=== PATIENT | female | born 1950 | race Caucasian/White ===

== ENCOUNTER 2025-08-04 18:19 | Inpatient (IN) | payer MEDICARE, OTHER, SELFPAY ==
[2025-08-04 16:30] VITALS: BP 145/75; PULSE 60; RESP 16; O2SAT 97; BMI 32.9
[2025-08-04 19:00] VITALS: BP 186/77; PULSE 61; RESP 16; TEMP 36.9; O2SAT 97
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
[2025-08-04 20:23] VITALS: RESP 16
[2025-08-04 20:50] VITALS: BP 171/67
[2025-08-04 22:47] VITALS: PULSE 56
[2025-08-04 22:53] VITALS: BP 173/68; PULSE 62; RESP 18; TEMP 37.1; O2SAT 97
[2025-08-05] VITALS (23 sets, daily range): BP systolic 136–197; BP diastolic 60–126; PULSE 61–74; RESP 14–18; TEMP 36.1–37.1; O2SAT 92–98
[2025-08-05] MEDS: ACETAMINOPHEN 325 MG TABLET 650 MG PO ×2 (01:02→19:34)
[2025-08-05 06:44] LABS: Hematocrit* 34.6 % (33.0-51.0); Hemoglobin* 11.6 gm/dL (12.0-16.0); Mean Corpuscular HGB Conc 34 gm/dL (32-36); Mean Corpuscular Hemoglobin 32 pg (26-34); Mean Corpuscular Volume 96 fL (80-100); Red Blood Count* 3.61 m/uL (4.00-5.20); White Blood Count* 7.46 K/uL (4.50-11.00)
--- NOTE | 2025-08-05 06:54 | PC.NURSE ---
End of shift report [id number]: VSS. Afebrile.?Pt has been NPO since 2199. Denies nausea. Pt was?on?bedrest overnight, repositioning as tolerated. Active ice applied.?Pure wick?is intact.?Pt has earrings, dentures, R hearing?aid?and glasses that?pt will?remove prior to surgery and put in the labeled container in room. Pt denies pain at rest, prn?tylenol?offered and?given for?comfort.?Bed alarm on, call light within reach.?
[2025-08-05 06:56] LABS: Chloride* 102 mmol/L (96-114); Potassium* 3.4 mmol/L (3.6-5.1); Sodium* 136 mmol/L (135-149)
[2025-08-05 06:59] LABS: Anion Gap 6 mEq/L (7-15); Blood Urea Nitrogen* 11 mg/dL (7-30); Calcium* 8.7 mg/dL (8.4-10.6); Carbon Dioxide* 28 mmol/L (20-32); Creatinine* 0.5 mg/dL (0.5-1.5); Est. Creatinine Clearance* 38.44; Estimated Glomerular Filt Rate 98 ml/min; Glucose* 118 mg/dL (60-115)
[2025-08-05 07:02] LABS: Slide Review Reflex No
[2025-08-05 07:24] LABS: NT Pro B Type NatriureticPept* 533 pg/mL (See Note)
--- NOTE | 2025-08-05 07:30 | CRLHL7_ITS ---
For Patients: As a result of the Century Cures Act, medical imaging exams and procedure reports are released immediately into your electronic medical record. You may view this report before your referring provider. If you have questions, please contact your health care provider. INDICATION: Intraop. TECHNIQUE: Three spot fluoroscopic views of the left hip. COMPARISON: None. FINDINGS: Left hip intramedullary nail appears properly positioned. Please see operative report/procedure note for complete details. Fluoroscopy time: 83 seconds. Radiation dose: 13.5 mGy. IMPRESSION: Fluoroscopic guidance for left hip fixation. Dictated by Hans Alexandre MD @ 08/06/2025 8:06:14 AM (Electronically Signed)
--- NOTE | 2025-08-05 07:47 | P.IMPN_ITS ---
Assessment and Plan Assessment and plan (1) Intertrochanteric fracture of left femur: Problem comment: - fall on 08/04/2025 with resultant mildly impacted intertrochanteric fracture of left proximal femur - Dr. Trujillo, orthopedic surgeon, will consult with patient on the morning of 08/05/2025 to consider possible surgical management options with patient - NPO after 10:00 p.m. on 08/04/2025. Pain management. - 08/05 Preop clearance: New RUSB murmur. I am concerned about the possibility of severe or critical aortic stenosis. The patient has not had chest pain, shortness of breath, or syncope, but does endorse recent lightheadedness to her nurse. I spoke with Dr. Saba from [facility] who noted this patient had an ECHO 6 years ago that is in their system that showed aortic sclerosis with mild stenosis at that time. She agreed that with the new right upper sternal border murmur heard on exam and this history, that there is a possibility this patient could have more severe stenosis by now. He noted that having a loud murmur is usually associated with a less severe stenosis, but severe critical aortic stenosis cannot be ruled out without on echo. We discussed whether not echo would be necessary prior to going to an urgent surgery for hip fracture. We discussed that there is a risk of increased mortality in delaying surgery for hip fracture, but that there is also a increased risk of morbidity or mortality with more severe stenosis and that we should avoid hypotension until we know. Dr. Saba stated that it is up to the comfort level of our providers here as to whether or not she goes to surgery prior to getting an ECHO, and that if we take her to surgery without those results, we should avoid hypotension (she stressed this several times). I spoke with Dr. Cresencio Watts and our nurse bleaching machine operator, Yanet Estrada, and we decided to delay surgery until an echo could be obtained, which should be today yet. They noted that they could do the surgery yet today in the afternoon or evening, if she is medically cleared for surgery by then. Status: Acute (2) Newly recognized heart murmur: Problem comment: - as above, ECHO pending, to be done today Status: Acute (3) Hypertension: Problem comment: - when initially seen in the emergency department at [address], systolic blood pressure was 220 with diastolic pressure 110. Since then her blood pressures have improved substantially. Continue to monitor. Given patient's stated adverse reaction to multiple antihypertensives including atenolol, carvedilol, chlorthalidone, lisinopril, losartan, amlodipine, may need to consider clonidine or hydralazine with a diuretic in low-dose short-acting beta-teresa such as metoprolol tartrate if warranted. - Avoid hypotension (as above) until more information is available from ECHO. Status: Acute (4) Hypothyroid: Problem comment: - historically patient has been on levothyroxine 100 mcg daily. She stopped taking her levothyroxine over 2 years ago. Presently her TSH is 45.9. - will restart her levothyroxine at 100 mcg daily presently. This may help lower her blood pressures as well. Status: Acute (5) Tricompartment osteoarthritis of knees, bilateral: Problem comment: End-stage Status: Chronic (6) Controlled type 2 diabetes mellitus without complication, without long-term current use of insulin: Problem comment: - in-hospital will use sliding scale insulin q.i.d. a.c. and at bedtime Status: Chronic (7) Sensorineural hearing loss, bilateral: Status: Chronic (8) Noncompliance with medication regimen: Status: Acute (9) Porcelain gallbladder: Problem comment: - incidentally found on 08/04/2025 when she was assessed and found to have the left intratrochanteric fracture. Radiologist recommends dedicated CT scan to further assess this in the outpatient setting and consider follow-up with general surgeon. Status: Acute Plan 1. Reviewed impression, plans, recommendations with patient and 2. They are agreeable with above stated plans and recommendations 3. Answered their questions to their satisfaction Total Time Spent Total Time Spent: Today I spent 60 minutes seeing the patient, discussing with the patient and her , phone discussion with Cardiology, discussion with orthopedic provider and nurse bleaching machine operator, reviewing Expanse and EPIC notes/diagnostics/labs, discussing the care plan with our care team that includes social work, PT/OT, pharmacy, RT, correction and documenting my impressions and plan in the medical record. Subjective Time Seen by Provider: 07:15 Date Seen: 08/05/25 Interval history: Vaishali's , Ricky, is also in the room this morning. Vaishali has minimal pain. She denies CP or SOB. She told the nurse that she hasn't felt well for about a week and sometimes gets lightheaded, but she denied lightheadedness when I asked her about that. She also denies syncope. She tells me that she fell because her sciatica was acting up and her knee gave out. Exam Narrative: Exam Narrative: General: No acute distress. Awake, alert, oriented x3. No pallor. No jaundice. Oropharynx: Clear. Mucous membranes moist. Cardiovascular: Regular rate and rhythm. Harsh grade 4/6 murmur loudest at the right upper sternal border that radiates to both carotids, right greater than left. Respiratory: Clear to auscultation bilaterally. No wheezes or crackles. Abdomen: Bowel sounds present. Soft, nondistended, nontender. Extremities: Left lower extremity is shortened and externally rotated. No ecchymosis over left hip noted. No lower extremity edema. Const: Vital Signs, click to edit/add: Vital Signs - 24 hr 08/04/25 16:30 08/04/25 16:30 08/04/25 19:00 Temperature 98.5 F Pulse Rate Pulse Rate [Pulse Oximeter] 60 61 Respiratory Rate 16 16 Blood Pressure [Le ft Arm] 145/75 H 186/77 H Blood Pressure [Le ft forearm] Pulse Oximetry 97 97 97 Oxygen Delivery Me thod Room Air Room Air Room Air 08/04/25 20:23 08/04/25 20:50 08/04/25 22:47 Temperature Pulse Rate 56 L Pulse Rate [Pulse Oximeter] Respiratory Rate 16 Blood Pressure [Le ft Arm] Blood Pressure [Le ft forearm] 171/67 H Pulse Oximetry Oxygen Delivery Me thod 08/04/25 22:53 08/04/25 22:53 08/05/25 03:00 Temperature 98.7 F 98.4 F Pulse Rate Pulse Rate [Pulse Oximeter] 62 68 Respiratory Rate 18 18 18 Blood Pressure [Le ft Arm] Blood Pressure [Le ft forearm] 173/68 H 177/78 H Pulse Oximetry 97 97 95 Oxygen Delivery Me thod Room Air Room Air Room Air Labs Labs: Laboratory Results - last 24 hr 08/05/25 05:50 WBC 7.46 RBC 3.61 L Hgb 11.6 L Hct 34.6 MCV 96 MCH 32 MCHC 34 Plt Count 227 Sodium 136 Potassium 3.4 L Chloride 102 Carbon Dioxide 28 Anion Gap 6 L BUN 11 Creatinine 0.5 Estimated Creat Clear 38.44 Estimated GFR 98 Glucose 118 H Calcium 8.7 Magnesium 1.9 C-Reactive Protein 2.5 H NT-Pro-B Natriuret Pep 533 H
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
--- NOTE | 2025-08-05 08:54 | REH.PT ---
PT and OT eval orders were recieved, chart reviewed, and patient discussed in rounds. Patient with L hip fracture and awaiting surgery, will hold PT and OT eval orders until after surgery and cleared by team.
--- NOTE | 2025-08-05 10:47 | P.ORPRC_ITS ---
Procedure Note Date of procedure: 08/05/25 Procedure: PREOPERATIVE DIAGNOSIS: 1. Left intertrochanteric hip fracture, closed, displaced POSTOPERATIVE DIAGNOSES: 1. Left intertrochanteric hip fracture, closed PROCEDURE: 1. Left intertrochanteric hip fracture fixation with cephalomedullary hip screw 2. 18294 - Intraoperative fluoroscopy up to 1 hour SURGEON: Cresencio Trujillo MD STRUCTURAL BIOLOGIST: Daisy Merchant P.A.-C. An administrative library assistant was critical for this case to aid in patient positioning, leg manipulation, tissue retraction, instrument positioning, and wound closure. ANESTHESIA: General IMPLANTS: Synthes short TFNA nail: 11 mm X 170 mm x 130 degrees. One hundred mm lag screw. Single 5.0 mm distal interlocking screw EBL: 200 ml COMPLICATIONS: None evident INDICATIONS: Vaishali is a 74-year-old female who sustained a ground level fall yesterday, which resulted in development of left hip pain and inability to bear weight. Patient was subsequently seen in an outside emergency department where x-rays revealed displaced left intertrochanteric hip fracture. She was then transferred to the [facility] for further treatment. Surgical stabilization of this fracture was recommended to allow for early mobilization and advancement of weight-bearing, decreased pain, and healing of the fracture. Prior to procedure, risks and benefits of the operative and non operative treatment were discussed with the patient. After discussion of risks, benefits, and alternatives of surgery, informed consent was obtained and the operative hip was marked. FINDINGS: Displaced, intertrochanteric left hip fracture PROCEDURE: After obtaining proper medical evaluation determining the patient was medically optimized for surgery, she was brought to the operating room and placed supine on the operating table. Induction of general anesthesia undertaken. IV Ancef was administered within 1 hr incision preoperatively. The patient was then positioned on the [place] table, and all bony prominences were well padded. Closed reduction was performed by applying traction to the of leg. Fluoroscopic imaging was utilized to obtain AP and lateral views of the hip and to confirm anatomic reduction of the fracture. The operative extremity was then prepped and draped in usual sterile fashion using ChloraPrep. A surgical time- out was performed confirming patient identity surgical site and surgical procedure. A longitudinal incision was made in line with the femur proximal to the greater trochanter. Incision was carried through subcutaneous tissues. Gluteal fascia was split in line with surgical incision. The tip of the greater trochanter was palpated and the guide pin was then placed into the medial tip of the greater trochanter and advanced into the proximal femur. Correct position of the guide pin was confirmed with fluoroscopy in both the AP and lateral planes. This was then overdrilled with the starting Reamer. The guide pin was then removed. A short TFNA nail was then placed into the intramedullary canal of the femur and seated to the correct depth using fluoroscopic guidance. The triple trocar was then applied to the lateral femur, 10 blade incision through the skin and ITB band along the trocars to be opposed against the lateral cortex. This was confirmed fluoroscopically to be in appropriate position. The 3.2 mm guide pin was then placed and confirmed on AP and lateral views with the goal of center-center position in the subchondral bone of the femoral head. The guide pin measured for a 100 mm lag screw. Guide pin was then overdrilled and a 100 mm lag screw was secured into position. The proximal nail locking screw was tightened down, a then backed off a 1/2 turn. We then turned our attention to placement of the the distal interlock screw. The guide for the distal interlock screw was placed on the lateral cortex of the femur. The distal interlock hole was drilled with the 4.2 mm drill bit and filled with a distal interlock screw, which measured 38 mm. Final fluoroscopic images of the proximal femur were obtained in AP and lateral planes confirming near anatomic reduction of the fracture and satisfactory placement of the nail and screws. At this stage, the wounds were thoroughly irrigated with normal saline. Subcutaneous tissues were injected with 0.5% bupivacaine with epinephrine. Wound closure was performed with 0 Vicryl for the deep gluteal fascia, and IT band. 2-0 Vicryl and 4-0 Monocryl was utilized for subcutaneous and subcuticular closure, respectively. After wound closure, sterile dressing were applied. The patient was then awoken from anesthesia and transferred to the PACU in stable condition. POSTOPERATIVE PLAN: 1. Patient will be readmitted to the hospitalist service for perioperative medical management. 2. Mobilize with physical therapy and occupational therapy. - Weight bear as tolerated left lower extremity. 3. Pain control: - Acetaminophen and Oxycodone for pain as needed. -IV pain medications for breakthrough pain -Ice for pain and swelling 4. Postoperative prophylactic antibiotics x2 doses 5. DVT prophylaxis: - Xarelto 10 mg daily for 35 days - SCDs bilateral lower extremities. 6. Follow-up with P.A. in Orthopedic Clinic in 1-2 weeks for wound check. Follow-up with Dr. Trujillo in 6 weeks.
[2025-08-05] MEDS: TRANEXAMIC ACID 100 MG/ML INJ 1000 MG IV (11:08)
[2025-08-05] MEDS: BUPIVACAINE 0.5 %/EPI 1:200K 30 ML INJECTION (12:10)
--- NOTE | 2025-08-05 13:15 | P.ANES_ITS ---
Anesthesia Charges Start Date/Time Anesthesia Start Date: 08/05/25 Anesthesia Start Time: 10:41 Stop Date/Time Anesthesia Stop Date: 08/05/25 Anesthesia Stop Time: 12:31 Summary Emergency: MACHINE SHOP WORKER Extremes of Age - Over 70 or under 1: MACHINE SHOP WORKER Coding CPT Codes CPT Codes: ANESTH HIP JOINT SURGERY - 97410 ([id number]) P3 - PATIENT W/SEVERE SYS DISEASE, QZ - MACHINE SHOP WORKER SVC W/O SPORTING GOODS SALESPERSON BY Additional Codes: Summary - Emergency: MACHINE SHOP WORKER ([id number]) Summary - Extremes of Age - Over 70 or under 1: MACHINE SHOP WORKER ([id number])
--- NOTE | 2025-08-05 13:15 | W.ANESCHARGE ---
Anesthesia Charges Start Date/Time Anesthesia Start Date: 08/05/25 Anesthesia Start Time: 10:41 Stop Date/Time Anesthesia Stop Date: 08/05/25 Anesthesia Stop Time: 12:31 Summary Emergency: INTERNAL REVENUE AGENT Extremes of Age - Over 70 or under 1: INTERNAL REVENUE AGENT Coding CPT Codes CPT Codes: ANESTH HIP JOINT SURGERY - 00373 ([id number]) P3 - PATIENT W/SEVERE SYS DISEASE, QZ - INTERNAL REVENUE AGENT SVC W/O CARBON BRUSH MAKER BY Additional Codes: Summary - Emergency: INTERNAL REVENUE AGENT ([id number]) Summary - Extremes of Age - Over 70 or under 1: INTERNAL REVENUE AGENT ([id number])
[2025-08-05] MEDS: ONDANSETRON 2 MG/ML inj 4 MG IVP (13:45)
--- NOTE | 2025-08-05 17:55 | PC.NURSE ---
End of shift: patient is a/o x4, VSS on RA. Off unit at 1040 for surgery. up to floor at 1300 after Left hip fracture repair. Dressing C/D/I and active ice to op site. denies pain. C/o nausea and had 4 emesis after surgery, patient refused Zofran, queazy patch, soha-laurie or other therapeutic therapies. RN was able to educate patient on using Zofran once for the nausea and vomiting after the fourth emesis. PRN Zofran administered w/relief. Patient is hesitant to use pain meds or any other medications. patient educated on the importance of medication compliance. patients wishes have been upheld. Patient up to chair, voided and tolerating a reg diet. at bedside.
[2025-08-05] MEDS: CEFAZOLIN 2 GM in 0.9 % SODIUM CHLORIDE Mini-bag 100 ML IVPB (18:43)
--- NOTE | 2025-08-05 20:08 | PC.NURSE ---
Pt noted to have R AC infiltrating after 1900 dose of IV Cefazolin given. IV was removed with catheter tip intact. Active applied and RUE elevated. Pt refused to have new IV placed despite education of tele, full code status and IV antibiotics ordered after surgery. Chief Of Police updated Dr. Trejo and ortho CHERYL Villa regarding pt's refusal and unwilling to receive second and final dose of Cefazolin. No new orders.
[2025-08-06] VITALS (10 sets, daily range): BP systolic 123–167; BP diastolic 56–73; PULSE 55–70; RESP 16–20; TEMP 36.6–37.2; O2SAT 90–96
[2025-08-06] MEDS: ACETAMINOPHEN 325 MG TABLET 650 MG PO ×3 (03:35→21:09)
[2025-08-06 05:53] LABS: Hematocrit* 31.1 % (33.0-51.0); Hemoglobin* 10.6 gm/dL (12.0-16.0); Immature Granulocytes Abs Auto 0.01 K/uL (0.00-0.30); Immature Granulocytes Pct Auto 0.1 %; Mean Corpuscular HGB Conc 34 gm/dL (32-36); Mean Corpuscular Hemoglobin 32 pg (26-34); Mean Corpuscular Volume 95 fL (80-100); RDW Coefficient of Variation % 12.7 % (11.5-15.5); Red Blood Count* 3.27 m/uL (4.00-5.20); White Blood Count* 11.00 K/uL (4.50-11.00)
[2025-08-06 05:55] LABS: Lymphocytes Absolute Auto 2.10 K/uL (0.90-2.90)
[2025-08-06 05:56] LABS: Slide Review Reflex No
[2025-08-06 06:06] LABS: Chloride* 103 mmol/L (96-114); Potassium* 3.6 mmol/L (3.6-5.1); Sodium* 134 mmol/L (135-149)
[2025-08-06 06:09] LABS: Anion Gap 4 mEq/L (7-15); Blood Urea Nitrogen* 15 mg/dL (7-30); Calcium* 8.7 mg/dL (8.4-10.6); Carbon Dioxide* 27 mmol/L (20-32); Creatinine* 0.7 mg/dL (0.5-1.5); Est. Creatinine Clearance* 38.44; Estimated Glomerular Filt Rate 90 ml/min; Glucose* 122 mg/dL (60-115)
--- NOTE | 2025-08-06 06:25 | PC.NURSE ---
End of shift note [id number]: Pt A&Ox4 and able to make needs known. She is [place] at baseline and wears bilateral hearing aids. Pt transferring/ambulating to and from bathroom using assist of 2 for safety with FWW and gait belt. Pt continent and incontinent of bladder throughout the shift. IV to R AC noted to be infiltrated at start of shift. IV removed with catheter intact. Pt refused to have new IV placed despite education. MD Trejo and CHERYL Villa with Ortho department aware. Pt refuses medications for pain other than Tylenol. She has been denying nausea throughout the shift and has had no emesis noted. CMS to LLE WNL. Dressings to lateral LLE C/D/I. Active ice utilized for pain control. Tele in place with NSR with inverted T wave noted which is not a new finding as this was noted on previous EKG and signed by . Call light within reach and pt up in chair for breakfast.
[2025-08-06] MEDS: RIVAROXABAN 10 MG TABLET PO (08:14)
--- NOTE | 2025-08-06 08:20 | PM.ORPN ---
Subjective Subjective Time Seen by Provider: 07:30 Date Seen: 08/06/25 Principal diagnosis: Status post left hip IM rodding Interval history: Vaishali is comfortable this morning. She has been ambulating with walker and assistance. She would like to go home upon discharge. She takes Tylenol for pain. Ortho Exam Narrative Exam Narrative: Alert and oriented x3. Patient is in no acute distress. Converses without labored breathing. Hard of hearing. Ambulates with a walker and assists. Examination of the left hip shows mild soft tissue edema. Dressings are intact. No erythema or warmth or sign of infection. CMS intact left lower extremity. Calves are soft and nontender. Const Vital Signs, click to edit/add: Vital Signs - 24 hr 08/05/25 12:28 08/05/25 12:35 08/05/25 12:40 Temperature 97.9 F Pulse Rate 73 65 63 Pulse Rate [Pulse Oximeter] Respiratory Rate 14 16 14 Blood Pressure 194/88 H 185/94 H 162/70 H Blood Pressure [Left forearm] Pulse Oximetry 98 97 95 Oxygen Delivery Method Nasal Cannula Oxygen Flow Rate 2 1 08/05/25 12:45 08/05/25 12:50 08/05/25 12:55 Temperature 98.2 F Pulse Rate 68 70 71 Pulse Rate [Pulse Oximeter] Respiratory Rate 17 16 16 Blood Pressure 181/78 H 178/86 H 178/77 H Blood Pressure [Left forearm] Pulse Oximetry 95 95 92 Oxygen Delivery Method Room Air Oxygen Flow Rate 08/05/25 13:00 08/05/25 13:15 08/05/25 13:30 Temperature 97.0 F L 98.0 F 97.9 F Pulse Rate Pulse Rate [Pulse Oximeter] 66 74 74 Respiratory Rate 18 18 18 Blood Pressure Blood Pressure [Left forearm] 171/126 H 197/86 H 193/77 H Pulse Oximetry 95 95 95 Oxygen Delivery Method Room Air Room Air Room Air Oxygen Flow Rate 1 08/05/25 13:45 08/05/25 14:00 08/05/25 14:30 Temperature 97.9 F 97.9 F 97.9 F Pulse Rate Pulse Rate [Pulse Oximeter] 66 66 63 Respiratory Rate 18 18 18 Blood Pressure Blood Pressure [Left forearm] 195/85 H 179/89 H 169/67 H Pulse Oximetry 95 95 97 Oxygen Delivery Method Room Air Room Air Room Air Oxygen Flow Rate 08/05/25 15:00 08/05/25 15:00 08/05/25 15:00 Temperature 97.7 F Pulse Rate Pulse Rate [Pulse Oximeter] 65 65 Respiratory Rate 18 18 18 Blood Pressure Blood Pressure [Left forearm] 164/96 H Pulse Oximetry 93 93 Oxygen Delivery Method Room Air Room Air Oxygen Flow Rate 08/05/25 15:00 08/05/25 16:00 08/05/25 17:00 Temperature 98.0 F 98.0 F Pulse Rate 71 Pulse Rate [Pulse Oximeter] 63 65 Respiratory Rate 16 16 Blood Pressure Blood Pressure [Left forearm] 155/77 H 156/80 H Pulse Oximetry 97 95 Oxygen Delivery Method Room Air Room Air Oxygen Flow Rate 08/05/25 18:00 08/05/25 19:00 08/05/25 22:00 Temperature 98.0 F 98.3 F Pulse Rate Pulse Rate [Pulse Oximeter] 69 69 69 Respiratory Rate 16 16 16 Blood Pressure Blood Pressure [Left forearm] 151/82 H 161/71 H Pulse Oximetry 96 95 Oxygen Delivery Method Room Air Room Air Oxygen Flow Rate 08/05/25 22:42 08/05/25 22:44 08/05/25 22:46 Temperature 98.7 F Pulse Rate 61 Pulse Rate [Pulse Oximeter] 61 Respiratory Rate 16 16 Blood Pressure Blood Pressure [Left forearm] 136/60 Pulse Oximetry 93 93 Oxygen Delivery Method Room Air Room Air Oxygen Flow Rate 08/06/25 03:30 Temperature 98.8 F Pulse Rate Pulse Rate [Pulse Oximeter] 64 Respiratory Rate 16 Blood Pressure Blood Pressure [Left forearm] 160/73 H Pulse Oximetry 96 Oxygen Delivery Method Room Air Oxygen Flow Rate Assessment and Plan Assessment and plan (1) Status post-operative repair of closed fracture of left hip: Problem details: Date of surgery 08/05/2025, Dr. Trujillo Status: Acute Assessment and Plan: Vaishali is quite comfortable on Tylenol only. She plans to go home upon discharge. [facility] to work with her today. Weightbear as tolerated left lower extremity. For DVT prophylaxis she will take Xarelto 10 mg for 35 days. Outpatient physical therapy will be needed. She will return to clinic in 1-2 weeks for a PA wound check, [address] Trujillo.
--- NOTE | 2025-08-06 14:13 | PC.SOCIAL ---
Discharge planning:Met with pt regarding discharge planning. Pt states she plans to return to her home at discharge in [facility] where she lives with her and son. Pt states she has no concerns about care at home and will have assistance from family as needed. Pt states all her family have large vehicles that she can not get in and out of and is requesting taxi be arranged for discharge tomorrow. Pt requested social service agency director arrange for a taxi to her home address on her facesheet and asked social service agency director to provide her with the cost. skid worker called [employer] and arranged for waste picker tomorrow at 11:30am at the main door of the hospital. Cost will be $40 [place]. i requested a confirmation call that pt will be ready at that time 15 minutes before waste picker time to [phone]. skid worker to provide this information to pt.
--- NOTE | 2025-08-06 18:14 | P.IMPN_ITS ---
Assessment and Plan Assessment and plan (1) Status post-operative repair of closed fracture of left hip: Problem comment: Date of surgery 08/05/2025, Dr. Trujillo Routine post op cares Patient will try low dose oxycodone today Status: Acute (2) Intertrochanteric fracture of left femur: Problem comment: - fall on 08/04/2025 with resultant mildly impacted intertrochanteric fracture of left proximal femur Status: Acute (3) Tricompartment osteoarthritis of knees, bilateral: Problem comment: End-stage Status: Chronic (4) History of DVT of lower extremity: Problem comment: Recommend low dose rivaroxaban for 4 weeks post op for VTE prophylaxis Status: Inactive (5) Aortic stenosis: Problem comment: - 08/05/25 Moderate to severe on ECHO - Unclear if patient has been symptomatic, although I think she has not been; she is poor historian, variable reporting of recent lightheadedness. Denies SOB, CP, syncope. F/u with cardiology as outpatient Status: Acute (6) LVH (left ventricular hypertrophy): Problem comment: - On ECHO 08/05/25 - Starting MARU inh Status: Acute (7) Hypertension: Problem comment: - when initially seen in the emergency department at [address], systolic blood pressure was 220 with diastolic pressure 110. Since then her blood pressures have improved substantially. Continue to monitor. Given patient's stated adverse reaction to multiple antihypertensives including atenolol, carvedilol, chlorthalidone, lisinopril, losartan, amlodipine, may need to consider clonidine or hydralazine with a diuretic in low-dose short-acting beta-teresa such as metoprolol tartrate if warranted. - Avoid hypotension (as above) - Start lisinopril (LVH), f/u with PCP in [place] Status: Acute (8) Hypothyroid: Problem comment: - historically patient has been on levothyroxine 100 mcg daily. She stopped taking her levothyroxine over 2 years ago. Presently her TSH is 45.9. - levothyroxine at 100 mcg daily. This may help lower her blood pressures as well. Patient agreeable to take this now. Status: Acute (9) Controlled type 2 diabetes mellitus without complication, without long-term current use of insulin: Problem comment: - in-hospital will use sliding scale insulin q.i.d. a.c. 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 Radiologist recommends dedicated CT scan to further assess this in the outpatient setting and consider follow-up with general surgeon. Status: Acute (12) Obesity (BMI 30.0-34.9): Status: Acute (13) Sensorineural hearing loss, bilateral: Status: Chronic Total Time Spent Total Time Spent: Today I spent 50 minutes seeing the patient, discussing with the patient, reviewing Expanse and EPIC notes/diagnostics/labs, discussing the care plan with our care team that includes social work, PT/OT, pharmacy, RT, custodial and documenting my impressions and plan in the medical record. Subjective Time Seen by Provider: 11:10 Date Seen: 08/06/25 Interval history: Vaishali c/o feeling not ready to go home despite doing well in PT/OT. She admits to feeling painful, but fearful of trying opioid medications or any medications. I took time to explain in detail the results of the ECHO, , LVH, HTN, hypothyroidism, and we discussed how pain may inhibit her ability to ambulate or participate in therapies. She asked me to write these down for her, which I did. She was then agreeable to take medications, including levothyroxine, low dose oxycodone, lisinopril, rivaroxaban, and to f/u with cardiology as an outpatient. We agreed that she would stay today to start these medications and see how she did, and she would discharge tomorrow if doing well. Exam Narrative: Exam Narrative: General: No acute distress. Awake, alert, oriented x3. No pallor. No jaundice. Oropharynx: Clear. Mucous membranes moist. Cardiovascular: Regular rate and rhythm. Harsh grade 4/6 murmur loudest at the right upper sternal border that radiates to both carotids, right greater than left. Respiratory: Clear to auscultation bilaterally. No wheezes or crackles. Abdomen: Bowel sounds present. Soft, nondistended, nontender. Extremities: Left hip bandages C/D/I. Const: Vital Signs, click to edit/add: Vital Signs - 24 hr 08/05/25 19:00 08/05/25 22:00 08/05/25 22:42 Temperature 98.3 F 98.7 F Pulse Rate Pulse Rate [Pulse Oximeter] 69 69 61 Respiratory Rate 16 16 16 Blood Pressure [Le ft forearm] 161/71 H 136/60 Pulse Oximetry 95 93 [facility] Room Air 08/05/25 22:44 08/05/25 22:46 08/06/25 03:30 Temperature 98.8 F Pulse Rate 61 Pulse Rate [Pulse Oximeter] 64 Respiratory Rate 16 16 Blood Pressure [Le ft forearm] 160/73 H Pulse Oximetry 93 96 [facility] Room Air 08/06/25 07:00 08/06/25 07:00 08/06/25 07:00 Temperature Pulse Rate 55 L Pulse Rate [Pulse Oximeter] 60 Respiratory Rate 18 18 Blood Pressure [Le ft forearm] Pulse Oximetry 92 [facility] 08/06/25 07:00 08/06/25 11:00 08/06/25 15:00 Temperature 98.8 F 97.9 F Pulse Rate Pulse Rate [Pulse Oximeter] 60 60 Respiratory Rate 18 18 20 Blood Pressure [Le ft forearm] 159/56 H 150/67 H Pulse Oximetry 92 96 94 [facility] Room Air Room Air 08/06/25 15:00 08/06/25 16:38 Temperature 98.9 F Pulse Rate 70 Pulse Rate [Pulse Oximeter] 69 Respiratory Rate 20 Blood Pressure [Le ft forearm] 167/69 H Pulse Oximetry 94 Oxygen [facility] Air Labs Labs: Laboratory Results - last 24 hr 08/06/25 05:43 WBC 11.00 RBC 3.27 L Hgb 10.6 L Hct 31.1 L MCV 95 MCH 32 MCHC 34 RDW Coeff of Lizeth 12.7 Plt Count 196 Neut % (Auto) 72.4 H Lymph % (Auto) 19.0 L Crawford % (Auto) 8.1 Eos % (Auto) 0.2 Baso % (Auto) 0.2 Neut # (Auto) 8.00 H Lymph # (Auto) 2.10 Crawford # (Auto) 0.90 Eos # (Auto) 0.02 Baso # (Auto) 0.02 Abs Immat Gran (auto) 0.01 Imm/Tot Granulo (auto) 0.1 Sodium 134 L Potassium 3.6 Chloride 103 Carbon Dioxide 27 Anion Gap 4 L BUN 15 Creatinine 0.7 Estimated Creat Clear 38.44 Estimated GFR 90 Glucose 122 H Calcium 8.7
--- NOTE | 2025-08-06 19:53 | PC.NURSE ---
End of shift [id number] - RN took over pt care at approximately 1230. Pt up with x1-x2 assist and able to ambulate from bed to chair and chair to bed. Pt reported pain in operative hip as 3/10 at rest and 5/10 when ambulating. Pt apprehensive about narcotic and non-narcotic pain relief. RN provided pt education and encouragement r/t medication for pain management. Pt given medication per MAR with pt reporting tolerating pain. Dressing CDI x 2, pedal pulse present. Pt appears to be resting comfortably in bed at end of shift with call light within reach.
[2025-08-06] MEDS: SENNOSIDES 1 TAB TABLET 2 TAB PO (21:09)
[2025-08-07 03:00] VITALS: BP 141/64; PULSE 68; RESP 18; TEMP 37.1; O2SAT 92
[2025-08-07] MEDS: ACETAMINOPHEN 325 MG TABLET 650 MG PO (05:38)
[2025-08-07] MEDS: LEVOTHYROXINE 100 MCG TABLET PO (05:39)
--- NOTE | 2025-08-07 05:58 | PC.NURSE ---
End of shift report : VSS.?Afebrile. Pt denies pain at rest. Pt rates pain?a 5/10 when ambulating. PRN pain meds offered and given, pt?expresses that ?the pain meds helped take the edge off.??L hip dressings are C/D/I x2. Active ice applied.?Pt?ambulated?to the BR x2 and to the chair x1, 1A, GB, W. CMS is intact. Call light?within?reach.?
[2025-08-07 06:19] LABS: Hematocrit* 31.9 % (33.0-51.0); Hemoglobin* 10.5 gm/dL (12.0-16.0); Immature Granulocytes Abs Auto 0.09 K/uL (0.00-0.30); Immature Granulocytes Pct Auto 0.9 %; Mean Corpuscular HGB Conc 33 gm/dL (32-36); Mean Corpuscular Hemoglobin 32 pg (26-34); Mean Corpuscular Volume 97 fL (80-100); RDW Coefficient of Variation % 12.9 % (11.5-15.5); Red Blood Count* 3.29 m/uL (4.00-5.20); White Blood Count* 9.60 K/uL (4.50-11.00)
[2025-08-07 06:22] LABS: Lymphocytes Absolute Auto 1.70 K/uL (0.90-2.90); Slide Review Reflex No
[2025-08-07 06:33] LABS: Chloride* 105 mmol/L (96-114); Potassium* 3.5 mmol/L (3.6-5.1); Sodium* 135 mmol/L (135-149)
[2025-08-07 06:36] LABS: Anion Gap 4 mEq/L (7-15); Blood Urea Nitrogen* 18 mg/dL (7-30); Carbon Dioxide* 26 mmol/L (20-32); Creatinine* 0.7 mg/dL (0.5-1.5); Est. Creatinine Clearance* 38.44; Estimated Glomerular Filt Rate 90 ml/min
[2025-08-07 06:37] LABS: Calcium* 8.9 mg/dL (8.4-10.6); Glucose* 123 mg/dL (60-115)
[2025-08-07 07:00] VITALS: BP 153/58; PULSE 65; PULSE 68; RESP 18; TEMP 37.2; O2SAT 94
--- NOTE | 2025-08-07 08:36 | P.ORPN_ITS ---
Subjective Subjective Time Seen by Provider: 08:36 Date Seen: 08/07/25 Principal diagnosis: Status post left hip IM rodding Interval history: Vaishali had nausea and vomiting this morning, likely from the oxycodone. She would like to stay away from that medication. She will be discharging to home today at 11:30 a.m.. Ortho Exam Narrative Exam Narrative: Alert and oriented x3. Patient is in no acute distress. Converses without labored breathing. Hard of hearing Ambulates with a walker. Examination of the left thigh shows mild edema. Dressings are in place. No sign of infection. CMS intact left lower extremity. Calves are soft and nontender. Const Vital Signs, click to edit/add: Vital Signs - 24 hr 08/06/25 11:00 08/06/25 15:00 08/06/25 15:00 Temperature 97.9 F 98.9 F Pulse Rate Pulse Rate [Pulse Oximeter] 60 69 Respiratory Rate 18 20 20 Blood Pressure [Left forearm] 150/67 H 167/69 H Pulse Oximetry 96 94 94 Oxygen Delivery Method Room Air Room Air Room Air 08/06/25 16:38 08/06/25 19:00 08/06/25 19:47 Temperature 98.9 F Pulse Rate 70 Pulse Rate [Pulse Oximeter] 69 Respiratory Rate 18 18 Blood Pressure [Left forearm] 139/58 L Pulse Oximetry 93 Oxygen Delivery Method Room Air 08/06/25 21:38 08/06/25 22:59 08/06/25 23:00 Temperature 98.9 F Pulse Rate 67 Pulse Rate [Pulse Oximeter] 68 Respiratory Rate 16 16 Blood Pressure [Left forearm] 123/67 Pulse Oximetry 90 90 Oxygen Delivery Method Room Air Room Air 08/07/25 03:00 Temperature 98.8 F Pulse Rate Pulse Rate [Pulse Oximeter] 68 Respiratory Rate 18 Blood Pressure [Left forearm] 141/64 H Pulse Oximetry 92 Oxygen Delivery Method Room Air Documenting provider has reviewed patient's vital signs: yes Assessment and Plan Assessment and plan (1) Status post-operative repair of closed fracture of left hip: Problem details: Date of surgery 08/05/2025, Dr. Trujillo Routine post op cares Patient will try low dose oxycodone today Status: Acute Assessment and Plan: Plan for discharge is today, and when they meets discharge criteria. DVT prophylaxis upon discharge includes Xarelto 10mg daily for a total of 35 days, 33 tablets have been sent to her pharmacy. Oxycodone causes nausea and vomiting this morning and a general sense of not feeling well. She would like to avoid oxycodone and use Tylenol only. She has Tylenol at home and she uses it minimally. We discussed less than 3000 mg per day of acetaminophen. She states she will only take a couple tablets in a day. Remove dressing 1-2 weeks. Observe wound and phone Orthopedics with any questions or concerns. If she wishes, she can leave the dressing on and can be removed in the clinic. Use Ice on operative hip unrestricted. Return to clinic in 2 weeks as scheduled for a wound check or sooner if needed. [place] location Return to clinic in 6 weeks with surgeon in [place] Weightbear as tolerated left lower extremity. An order has been sent to [facility] for outpatient physical therapy.
[2025-08-07] MEDS: SENNOSIDES 1 TAB TABLET 2 TAB PO (09:07)
[2025-08-07] MEDS: POTASSIUM BICARB 25 MEQ EFFERVESCENT TAB PO (09:07)
[2025-08-07] MEDS: RIVAROXABAN 10 MG TABLET PO (09:07)
--- NOTE | 2025-08-07 10:07 | P.DS_ITS ---
DS: Providers Provider Time Seen by Provider: 07:45 Date Seen: 08/07/25 Date of admission: 08/04/25 18:19 Primary care physician: Clover Veronica CNP Admitting Clinician: Ernie Trejo MD Consults: 08/04/25 17:51 Consult to Physical Therapy [CONS] Routine Comment: Reason(s) for PT Consult:: Evaluate and Treat Any Restrictions?:: See Comment Comment: L hip fx, anticipate repair AM 08/05/2025 Consult to Enrobing Machine Feeder [CONS] Routine Comment: Reason for Consult:: Discharge Planning Needs 08/04/25 17:53 Consult to Occupational Therapy [CONS] Routine Comment: Reason(s) for OT Consult:: Evaluate and Treat Any Restrictions?:: See Comment Comment: L hip fx, anticipate surgical repair AM 08/05/2025 08/05/25 13:24 Consult to Occupational Therapy [CONS] Routine Comment: Reason(s) for OT Consult:: Evaluate and Treat Any Restrictions?:: See Comment Comment: evaluate and treat s/p left hip IM nail Consult to Physical Therapy [CONS] Routine Comment: Reason(s) for PT Consult:: Evaluate and Treat Any Restrictions?:: Wt Bearing as Tolerated Comment: s/p left hip IM nail Consult to Enrobing Machine Feeder [CONS] Routine Comment: Reason for Consult:: Discharge Planning Needs Attending Physician on discharge: Manju Sumner MD Date of Discharge: 08/07/25 DS: Diagnosis Discharge Diagnosis (1) Status post-operative repair of closed fracture of left hip: Status: Acute Problem details: Date of surgery 08/05/2025, Dr. Trujillo Routine post op cares Patient has improved pain and activity tolerance with p.r.n. oxycodone (2) Intertrochanteric fracture of left femur: Status: Acute Problem details: - fall on 08/04/2025 with resultant mildly impacted intertrochanteric fracture of left proximal femur (3) Tricompartment osteoarthritis of knees, bilateral: Status: Chronic Problem details: End-stage (4) History of DVT of lower extremity: Status: Inactive Problem details: Recommend low dose rivaroxaban for 4 weeks post op for VTE prophylaxis (5) Aortic stenosis: Status: Acute Problem details: - 08/05/25 Moderate to severe on ECHO - Unclear if patient has been symptomatic, although I think she has not been; she is poor historian, variable reporting of recent lightheadedness. Denies SOB, CP, syncope. F/u with PCP in 1 week and cardiology as outpatient (6) LVH (left ventricular hypertrophy): Status: Acute Problem details: - On ECHO 08/05/25 - Starting MARU inh, follow-up with PCP (7) Hypertension: Status: Acute Problem details: - when initially seen in the emergency department at [address], [place], [place], systolic blood pressure was 220 with diastolic pressure 110. Since then her blood pressures have improved substantially. Continue to monitor. Given patient's stated adverse reaction to multiple antihypertensives including atenolol, carvedilol, chlorthalidone, lisinopril, losartan, amlodipine, may need to consider clonidine or hydralazine with a diuretic in low-dose short-acting beta-teresa such as metoprolol tartrate if warranted. - Avoid hypotension (as above) - Start lisinopril (LVH), f/u with PCP in [place] (8) Hypothyroid: Status: Acute Problem details: - historically patient has been on levothyroxine 100 mcg daily. She stopped taking her levothyroxine over 2 years ago. Presently her TSH is 45.9. - levothyroxine at 100 mcg daily. This may help lower her blood pressures as well. Patient agreeable to take this now. - check TSH in 1 month through PCP (9) Controlled type 2 diabetes mellitus without complication, without long-term current use of insulin: Status: Chronic Problem details: - in-hospital will use sliding scale insulin q.i.d. a.c. 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 Radiologist recommends dedicated CT scan to further assess this in the outpatient setting and consider follow-up with general surgeon. (12) Obesity (BMI 30.0-34.9): Status: Acute (13) Sensorineural hearing loss, bilateral: Status: Chronic DS: Summary Hospital Course Hospital Course: Per H&P: Vaishali Kumari is a 74 year old woman transferred to [facility] from [address] emergency department, [place], [place], as a direct admission for further evaluation and treatment of acute left intratrochanteric f racture status post fall. Her orthopedic surgeon is Dr. Valverde, with [facility] and [facility]. The physician in the emergency department, Dr. Jon, consulted with the orthopedic surgeon on-call for [facility] who accepted the patient in transfer for further stabilization of this acute hip fracture. I also spoke with emergency department physician from [address] and accepted the patient in transfer. Patient was outside with her picking up items in their backyard. She had 2 falls while doing this. The 1st fall occurred while she was still on the lawn. The 2nd fall occurred while she was on the driveway of their home. After the 2nd fall she had severe pain to the left hip. She did not trip over anything. She did not slip. She states her legs just gave out. Both times she landed on her left side. Eventually she agreed to go in for further assessment of the same and was found to the have the left proximal femur impacted intertrochanteric fracture. Dr. Trujillo, orthopedic surgeon, [facility], agreed to accept the patient for further orthopedic management and care. ECHO obtained prior to surgery showed progression to severe . General Anesthesia was used and hypotension was avoided. Patient did well perioperatively and did agree to restart levothyroxine and be on medication for hypertension. Lisinopril was started in the setting of LVH identified on echocardiogram. She tolerated these well and is discharged home today in improved condition. Note to PCP: Please see full details above in discharge diagnoses, note that patient has a new diagnosis of severe aortic stenosis and it is recommended that she follow-up with Cardiology, she has a new diagnosis of porcelain gallbladder and it is recommended that she have an outpatient dedicated CT scan to further assess this and possible follow-up with General surgery. She has been restarted on Synthroid and also started on lisinopril for LVH and hypertension. Please follow blood pressure for tight control and avoid hypotension in the setting of severe aortic stenosis and recheck TSH in 1 month. Time Spent with Patient Time attestation: Total time spent providing and/or coordinating discharge services: Today I spent 35 minutes seeing and discharging the patient, reviewing Expanse and EPIC notes/diagnostics/labs, discussing the care plan with our care team that includes social work, PT/OT, pharmacy, RT, intermediate and documenting my impressions and plan in the medical record. Exam Narrative: Exam Narrative: General: No acute distress. Awake, alert, oriented. No pallor. No jaundice. Oropharynx: Clear. Mucous membranes moist. Cardiovascular: Regular rate and rhythm. Harsh grade 4/6 murmur loudest at the right upper sternal border, unchanged. Respiratory: Clear to auscultation bilaterally. No wheezes or crackles. Abdomen: Bowel sounds present. Soft, nondistended, nontender. Extremities: Left hip bandages C/D/I. Const: Vital Signs, click to edit/add: Vital Signs - 24 hr 08/06/25 11:00 08/06/25 15:00 08/06/25 15:00 Temperature 97.9 F 98.9 F Pulse Rate Pulse Rate [Pulse Oximeter] 60 69 Respiratory Rate 18 20 20 Blood Pressure [Le ft forearm] 150/67 H 167/69 H Pulse Oximetry 96 94 94 Oxygen Delivery Me thod Room Air Room Air Room Air 08/06/25 16:38 08/06/25 19:00 08/06/25 19:47 Temperature 98.9 F Pulse Rate 70 Pulse Rate [Pulse Oximeter] 69 Respiratory Rate 18 18 Blood Pressure [Le ft forearm] 139/58 L Pulse Oximetry 93 Oxygen Delivery Me thod Room Air 08/06/25 21:38 08/06/25 22:59 08/06/25 23:00 Temperature 98.9 F Pulse Rate 67 Pulse Rate [Pulse Oximeter] 68 Respiratory Rate 16 16 Blood Pressure [Le ft forearm] 123/67 Pulse Oximetry 90 [facility] 08/07/25 03:00 08/07/25 07:00 08/07/25 07:00 Temperature 98.8 F 98.9 F Pulse Rate Pulse Rate [Pulse Oximeter] 68 68 Respiratory Rate 18 18 Blood Pressure [Le ft forearm] 141/64 H 153/58 H Pulse Oximetry 92 94 94 Oxygen Delivery Ri thod Room Air Room Air Room Air 08/07/25 07:00 Temperature Pulse Rate Pulse Rate [Pulse Oximeter] 68 Respiratory Rate Blood Pressure [Le ft forearm] Pulse Oximetry Oxygen Delivery Me thod DS: Data Data Completed and Pending Completed studies during hospitalization: 08/04/2025 EKG: Sinus bradycardia, 59 beats per minute, some ST and T-wave abnormality, consider inferior lateral ischemia. 08/04/2025 EKG: Sinus bradycardia, 59 beats per minute, T-wave abnormality, consider inferolateral ischemia. 08/05/2025 echocardiogram: Severely enlarged left atrium, normal left ventricular size, mildly increased wall thickness, hyperdynamic global systolic function, calculated EF of 80%. Jugular cavity size is normal, global systolic RV function is normal. The aortic valve is normal, trileaflet and calcified, severe stenosis and mild regurgitation. The aortic valve peak velocity is 4.6 m/s, the peak gradient is 84 mm Hg, and the mean gradient is 55 mm Hg. The aortic valve area is 1.16 cm2 with a dimensionless index of 0.28. The stroke volume index is 73.6 milliliters/meter squared. No pericardial effusion. Aortic stenosis is significantly increased from 2019. Ordering Physician: Doroteo Trujillo Date of Service: 08/05/25 Procedure(s): XR femur LT 1V Accession Number(s): [id number] cc: Clover Veronica CNP; Doroteo Trujillo~ For Patients: As a result of the Century Cures Act, medical imaging exams and procedure reports are released immediately into your electronic medical record. You may view this report before your referring provider. If you have questions, please contact your health care provider. INDICATION: Intraop. TECHNIQUE: Three spot fluoroscopic views of the left hip. COMPARISON: None. FINDINGS: Left hip intramedullary nail appears properly positioned. Please see operative report/procedure note for complete details. Fluoroscopy time: 83 seconds. Radiation dose: 13.5 mGy. IMPRESSION: Fluoroscopic guidance for left hip fixation. Dictated by Hans Alexandre MD @ 08/06/2025 8:06:14 AM (Electronically Signed) Labs on day of discharge: Labs from last 24 hours 08/07/25 06:08 WBC 9.60 RBC 3.29 L Hgb 10.5 L Hct 31.9 L MCV 97 MCH 32 MCHC 33 RDW Coeff of Lizeth 12.9 Plt Count 214 Neut % (Auto) 73.6 H Lymph % (Auto) 17.2 L Monona % (Auto) 7.3 Eos % (Auto) 0.7 Baso % (Auto) 0.3 Neut # (Auto) 7.10 H Lymph # (Auto) 1.70 Monona # (Auto) 0.70 Eos # (Auto) 0.07 Baso # (Auto) 0.03 Abs Immat Gran (auto) 0.09 Imm/Tot Granulo (auto) 0.9 Sodium 135 Potassium 3.5 L Chloride 105 Carbon Dioxide 26 Anion Gap 4 L BUN 18 Creatinine 0.7 Estimated Creat Clear 38.44 Estimated GFR 90 Glucose 123 H Calcium 8.9 Discharge Plan Discharge Disposition: Home, Self-Care Date of Admission: 08/04/25 18:19 Attending Provider on Discharge: Manju Sumner Primary Care Provider: Clover Veronica Condition: Improved Anticipated Discharge Date/Time: 08/07/25 10:14 Discharge Medications: New Xarelto 10 mg tablet 10 mg PO DAILY Qty: 33 0RF Rx Instructions: for 33 days sennosides [Senna Lax] 8.6 mg Tablet 8.6 mg PO BID Qty: 60 0RF lisinopril 5 mg Tablet 5 mg PO DAILY Qty: 30 0RF oxycodone 5 mg Tablet 5 mg PO Q6H MDD 15 mg PRN (Reason: Pain) Qty: 20 0RF Continued levothyroxine 100 mcg tablet 100 mcg PO DAILY Qty: 30 0RF Discharge Orders: Discharge Order (Routine); Ordered 08/07/25 Ordered By: Daisy Merchant Patient Education: Lisinopril (By mouth), Laxative, Stimulant (By mouth), Oxycodone, Rapid Release (By mouth), Rivaroxaban (By mouth), Hip Fracture (GEN) Additional Instructions: Appointment with orthopedic physician assistant prosecuting attorney in 2 weeks for a wound check. Vaishali will likely want to [facility]. Please return sooner if needed. Follow-up appointment with Dr. Trujillo in 6 weeks in [place]. Cardiology in 1-2 months for severe aortic stenosis Activity Level: No Restrictions Activity Detail: Weightbear as tolerated left lower extremity. Use a walker. Dressings may be removed in 5 days or you can leave them on until your first post op appointment. Surgical glue covers the wounds. Dressings are waterproof. May shower if safe to do so. Notify orthopedics if your dressing becomes compromised and gets saturated in shower. Attend outpatient physical therapy. An order for physical therapy has been sent to [facility] physical therapy. They will call you to make an appointment. Ice and elevate operative extremity without restriction. Swelling and bruising will worsen within the first week. When swelling occurs, elevate the extremity several times a day. You may wear compression stockings/maru bandages if needed for swelling. Ambulate frequently throughout the day. If you drive, Do not drive while taking narcotic pain medication. Do not drink alcohol while taking narcotic pain medication. May drive when safe to do so and have full function of the extremities, this may take 6 weeks or more. Notify Orthopedics with any questions or concerns. (phone: [phone]) Discharge Diet: Heart Healthy (2 gm sodium, low fat) Follow Up Appointments: Clover Veronica CNP [Primary Care Provider, Family Practice] Referral Note: 1 week, Daisy Khan PA-C [Physician [facility], Orthopedics] - 08/20/25 9:30 am Referral Note: follow [facility]
--- NOTE | 2025-08-07 11:53 | PC.NURSE ---
Discharge Note 249 Patient was very pleasant and cooperative throughout shift. VSS. Afebrile. Surgical dressing dry and intact. 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 Moves slowly but well with gait belt and walker. A&Ox3 with intermittent forgetfulness. Patient was discharged to a cab as per her request. Patient stated that her and son would be there to help her out of the cab and into the house. Patient discharged at 11:35 am
== END 2025-08-07 11:35 | disposition home or self-care (01) | DRG 482 ==
PROVIDERS: Family Medicine; Orthopaedic Surgery; Admitting Provider Internal Medicine; PCP Nurse Practitioner Family; Visit Provider Internal Medicine
PROC: 0QS706Z Reposition Left Upper Femur with Intramedullary Internal Fixation Device, Open Approach (ICD-10-PCS; CPT 27245; principal; 2025-08-05 07:30)
DX: S72.142A Displaced intertrochanteric fracture of left femur, initial encounter for closed fracture (principal); M17.0 Bilateral primary osteoarthritis of knee; I35.0 Nonrheumatic aortic (valve) stenosis; I11.9 Hypertensive heart disease without heart failure; E11.9 Type 2 diabetes mellitus without complications; Z91.148 Patient's other noncompliance with medication regimen for other reason; E66.9 Obesity, unspecified; Z68.32 Body mass index [BMI] 32.0-32.9, adult; W18.30XA Fall on same level, unspecified, initial encounter; Y93.H9 Activity, other involving exterior property and land maintenance, building and construction; Y92.007 Garden or yard of unspecified non-institutional (private) residence as the place of occurrence of the external cause; K82.8 Other specified diseases of gallbladder; E03.9 Hypothyroidism, unspecified; H90.3 Sensorineural hearing loss, bilateral; R01.1 Cardiac murmur, unspecified; E78.2 Mixed hyperlipidemia; Z86.718 Personal history of other venous thrombosis and embolism
CPT/HCPCS: 01210; 36415; 73551; 80048; 82962; 83735; 83880; 85025; 85027; 86140; 93005; 93307; 97110; 97116; 97162; 97166; 97530; 97535; 99100; 99140; A9270; C1713; J0330; J0690; J1100; J2250; J2371; J2405; J2704; J3010; J3475; J3490; J7030